=== PATIENT | female | born 1970 | race African-American/Black ===

== ENCOUNTER 2020-06-02 22:59 | Emergency (ER) | payer BC ==
[~2020-06-02] VITALS: Ht 165.1 cm; Wt 76.0 kg
[2020-06-03] MEDS ORDERED: ONDANSETRON HCL 4MG/2ML INJ IV STA (00:02)
[2020-06-03] MEDS ORDERED: SODIUM CHLORIDE 0.9% 1,000 ML IV ONE (00:02)
[2020-06-03 00:34] LABS: BASOPHILS % 0.3 % (0.0-2.0); EOSINOPHILS % 0.2 % (0.0-5.0); HEMATOCRIT. 39.5 % (36.0-48.0); HEMOGLOBIN. 12.9 g/dL (12.0-16.0); LYMPHOCYTES % 11.2 % (20.0-50.0); MEAN CORPUSCULAR HEMOGLOBIN 25.5 pg (28.0-32.0); MEAN CORPUSCULAR VOLUME 78.1 fL (81.0-99.0); MONOCYTES % 5.2 % (2.0-8.0); NEUTROPHILS % 83.1 % (40.0-76.0); PLATELET 247 x1000/uL (130-400); RED BLOOD CELL COUNT 5.06 mill/uL (4.2-5.4); RED CELL DISTRIBUTION WIDTH 14.8 % (11.6-14.6)
[2020-06-03 00:37] LABS: CHLORIDE 103 mEq/L (98-107)
[2020-06-03 00:45] LABS: HCG SCREEN NEGATIVE
[2020-06-03 00:49] LABS: CLARITY URINE CLEAR (CLEAR); COLOR URINE YELLOW (YELLOW); KETONES URINE NEGATIVE (NEGATIVE); LEUKOCYTE ESTERASE URINE NEGATIVE (NEGATIVE); NITRITE URINE NEGATIVE (NEGATIVE); OCCULT BLOOD URINE 1+ (NEGATIVE); PH URINE 5.5 (4.5-8.0); PROTEIN URINE NEGATIVE (NEGATIVE); SPECIFIC GRAVITY URINE 1.033 (1.005-1.030); UROBILINOGEN URINE 0.2 E.U./dL (0.2-1.0)
[2020-06-03 03:31] VITALS: BP 97/55
== END 2020-06-03 03:33 | disposition home or self-care (01) ==
LOC: EDBD → ER 22:59
DX: A04.8 Other specified bacterial intestinal infections (principal); I95.9 Hypotension, unspecified; R00.1 Bradycardia, unspecified; E11.9 Type 2 diabetes mellitus without complications
CPT/HCPCS: 36415; 80053; 81003; 83605; 83690; 84145; 84703; 85025; 87040; 87077; 87186; 93005; 96361; 96374; 99284; J2405; J7030

== ENCOUNTER 2020-06-11 09:02 | Emergency (ER) | payer BC ==
[~2020-06-11] VITALS: Ht 162.6 cm; Wt 68.0 kg
[2020-06-11 11:23] VITALS: BP 10/70
== END 2020-06-11 11:58 | disposition home or self-care (01) ==
LOC: ER 09:19 → EDBD 09:19 → ER 11:58
DX: Z00.00 Encounter for general adult medical examination without abnormal findings (principal); R11.2 Nausea with vomiting, unspecified; R10.9 Unspecified abdominal pain; E11.9 Type 2 diabetes mellitus without complications
CPT/HCPCS: 93005; 99283